=== PATIENT | female | born 1975 | race Asian ===

== ENCOUNTER 2017-08-04 15:06 | Emergency (ER) | payer OTHER ==
[~2017-08-04] VITALS: Ht 147.3 cm; Wt 34.0 kg
[~2017-08-04 15:06] MED LIST: GABA-585 PO; GABA-586 PO; LEVO500T8 PO; METF750T2 PO; PYRIDOXINE PO; [UNRECOGNIZED DRUG - REMARK] PO
[2017-08-04 16:00] VITALS: BP 112/83
[2017-08-04] MEDS ORDERED: NEOMY/BACITR/POLYMYXIN OINT PACKET. TP ONE (16:30)
[2017-08-04] MEDS ORDERED: NAPR-683 PO (16:36)
[2017-08-04] MEDS ORDERED: CEPH-264 PO (16:36)
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
== END 2017-08-04 16:40 | disposition home or self-care (01) ==
LOC: ER 15:06
DX: T25.221A Burn of second degree of right foot, initial encounter (principal); T31.0 Burns involving less than 10% of body surface; F17.220 Nicotine dependence, chewing tobacco, uncomplicated; E11.9 Type 2 diabetes mellitus without complications; X11.8XXA Contact with other hot tap-water, initial encounter; Y93.89 Activity, other specified; Y92.89 Other specified places as the place of occurrence of the external cause; Y99.8 Other external cause status
CPT/HCPCS: 16020; 99284-25

== ENCOUNTER 2017-12-30 11:21 | Emergency (ER) | payer OTHER ==
[2017-12-30 11:40] LABS: URINE HCG POC HCG NEGATIVE (Negative)
[2017-12-30 12:00] LABS: ADD MAN DIFF? NO
[2017-12-30 12:03] LABS: BASO # 0.1 x10^3/uL (0.0-0.2); BASO % 1 % (0-3); EOS # 0.3 x10^3/uL (0.0-0.7); EOS % 7 % (0-3); HEMATOCRIT 30.5 % (36.0-47.0); HEMOGLOBIN 10.9 g/dL (12.0-15.5); LYMPH # 1.2 x10^3/uL (1.0-4.8); LYMPH % 28 % (24-48); MEAN CORPUSCULAR HEMOGLOBIN 31 pg (25-35); MEAN CORPUSCULAR HGB CONC 36 g/dL (31-37); MEAN CORPUSCULAR VOLUME 86 fL (79-100); MONO # 0.4 x10^3/uL (0.0-1.1); MONO % 8 % (0-9); NEUT # 2.4 x10^3uL (1.8-7.7); NEUT % 56 % (31-73); PLATELET COUNT 212 x10^3/uL (140-400); RED BLOOD COUNT 3.56 x10^6/uL (3.50-5.40); RED CELL DISTRIBUTION WIDTH 12.8 % (11.5-14.5); WHITE BLOOD COUNT 4.3 x10^3/uL (4.0-11.0)
[2017-12-30 12:09] LABS: ANION GAP 6 (6-14); BLOOD UREA NITROGEN 16 mg/dL (7-20); CALCIUM 9.5 mg/dL (8.5-10.1); CARBON DIOXIDE 27 mmol/L (21-32); CHLORIDE 99 mmol/L (98-107); GFR 60.2; GLUCOSE 109 mg/dL (70-99); POTASSIUM 4.2 mmol/L (3.5-5.1); SODIUM 132 mmol/L (136-145)
[2017-12-30 12:12] LABS: BILIRUBIN,URINE NEGATIVE (NEG); CLARITY,URINE CLEAR; COLOR,URINE YELLOW; GLUCOSE,URINE NEGATIVE (NEG); NITRITE,URINE POSITIVE (NEG); PROTEIN,URINE NEGATIVE (NEG-TRACE); UROBILINOGEN,URINE 0.2 mg/dL (0.2 mg/dL)
[2017-12-30 12:15] LABS: ALBUMIN 4.1 g/dL (3.4-5.0); ALK PHOS 64 U/L (46-116); ALT (SGPT) 18 U/L (14-59); AST (SGOT) 20 U/L (15-37); DIRECT BILIRUBIN 0.1 mg/dL (0.0-0.2); LIPASE 175 U/L (73-393); TOTAL BILIRUBIN 0.5 mg/dL (0.2-1.0); TOTAL PROTEIN 8.8 g/dL (6.4-8.2)
[2017-12-30 12:25] LABS: TROPONINI < 0.017 ng/mL (0.000-0.055)
[2017-12-30 12:46] LABS: BACTERIA,URINE MODERATE /HPF (0-FEW); RBC,URINE 0 /HPF (0-2); SQUAMOUS EPITHELIAL CELL,UR FEW /LPF; WBC,URINE 20-40 /HPF (0-4)
== END 2017-12-30 13:47 | disposition home or self-care (01) ==
LOC: ER 11:21
DX: N39.0 Urinary tract infection, site not specified (principal); E11.9 Type 2 diabetes mellitus without complications
CPT/HCPCS: 36415; 80048; 80076; 81001; 81025; 83690; 84484; 85025; 87086; 93005; 99285

== ENCOUNTER 2017-12-31 22:18 | Emergency (ER) | payer OTHER ==
[2018-01-01] MEDS: FAMOTIDINE 20 MG TABLET. PO (00:28)
[2018-01-01] MEDS: predniSONE 10 MG TABLET PO (00:28)
[2018-01-01] MEDS: diphenhydrAMINE HCL 25 MG CAPSULE PO (00:28)
== END 2018-01-01 01:00 | disposition home or self-care (01) ==
LOC: ER 22:18
DX: L27.0 Generalized skin eruption due to drugs and medicaments taken internally (principal); T37.8X5A Adverse effect of other specified systemic anti-infectives and antiparasitics, initial encounter; N39.0 Urinary tract infection, site not specified; E11.9 Type 2 diabetes mellitus without complications; Y92.89 Other specified places as the place of occurrence of the external cause
CPT/HCPCS: 99284; J7512; Q0163